=== PATIENT | male | born 1960 | race Caucasian/White ===

== ENCOUNTER 2018-04-20 09:40 | Outpatient (CLI) | payer BC, SELFPAY ==
[2018-04-20 10:09] LABS: Abs Immature Grans 0.03 k/cumm (0.0-0.09); Absolute Basophil Count 0.01 k/cumm (0.0-0.2); Absolute Eosinophil Count 0.01 k/cumm (0.0-0.7); Absolute Monocyte Count 1.73 k/cumm (0.11-0.7); Absolute Neutrophil Count 2.63 k/cumm (1.2-6.7); Basophils % 0.2; Eosinophils % 0.2; HCT 45.2 % (40.0-50.0); HGB 14.9 g/dL (13.5-17.5); Immature Grans % 0.5; Mean Corpuscular Hemoglobin 30.7 pg (27.0-33.0); Monocytes % 27.9; Neutrophils % 42.2; RBC 4.86 m/cumm (4.50-6.00); RBC Distribution Width 13.9 % (11.8-14.1); White Blood Cell Count 6.21 k/cumm (4.4-10.8)
[2018-04-20 10:16] LABS: ALT 79 U/L (12-78); AST 51 U/L (15-37); Albumin 4.3 g/dL (3.4-5.0); Alkaline Phosphatase 56 U/L (46-116); Anion Gap 12.6 mmol/L (3-11); BUN 15 mg/dL (7-18); Bilirubin, Total 0.9 mg/dL (0.2-1.0); CO2 24.4 mmol/L (21.0-32.0); CREATININE 0.95 mg/dL (0.70-1.30); Calcium 8.8 mg/dL (8.5-10.1); Chloride 102 mmol/L (98-107); Glucose 91 mg/dL (70-100); Potassium 4.1 mmol/L (3.5-5.1); Sodium 139 mmol/L (136-145); Total Protein 7.5 g/dL (6.4-8.2)
[2018-04-20 10:34] LABS: Diff Comment Diff Reviewed; Platelet Count 75 x1000/uL (130-400); RBC Morphology Normal
== END 2018-04-20 10:00 ==
PROVIDERS: PCP Internal Medicine; Visit Provider Internal Medicine
DX: D46.20 Refractory anemia with excess of blasts, unspecified (principal)
CPT/HCPCS: 36415; 80053; 85025

== ENCOUNTER 2020-08-07 17:55 | Outpatient (REF) | payer BC, SELFPAY ==
[2020-08-07 19:08] LABS: Abs Immature Grans 14.97 10^3/uL (0.0-0.06); Basophils % 0.4; HCT 37.5 % (40.0-50.0); HGB 11.7 g/dL (13.5-17.5); Immature Grans % 3.5; Lymphocytes % 3.6; MCHC 31.2 % (32.0-36.0); MCV 99.2 fL (80-95); MPV 11.6 fL (8.0-11.0); Neutrophils % 3.2; Nucleated RBC 0 %; RBC 3.78 10^6/uL (4.36-5.78); RDW 17.8 % (11.8-14.1); RDW-SD 62.5 fL
[2020-08-07 19:10] LABS: ALT 64 U/L (16-63); AST 98 U/L (15-37); Albumin 4.3 g/dL (3.4-5.0); Alkaline Phosphatase 189 U/L (46-116); Amylase 42 U/L (25-115); Anion Gap 12.5 mmol/L (3-11); BUN 16 mg/dL (7-18); Bilirubin, Total 2.5 mg/dL (0.2-1.0); CO2 27.5 mmol/L (21.0-32.0); CREATININE 2.7 mg/dL (0.70-1.30); Calcium 9.5 mg/dL (8.5-10.1); Chloride 103 mmol/L (98-107); Estimated GFR 24.14 (mL/min/1.73m2); Glucose 127 mg/dL (74-106); Lipase 181 U/L (73-393); Sodium 143 mmol/L (136-145); Total Protein 7.2 g/dL (6.4-8.2)
[2020-08-07 19:14] LABS: INR 2.1 (0.9-1.1); PTT Activated 30.1 sec (21.0-27.5); Prothrombin Time 20.7 sec (9.3-11.0)
[2020-08-07 19:24] LABS: Bacteria Negative HPF (Negative); Crystals Moderate Amorphous HPF (Negative); Epithelial Cells Negative HPF (Negative); Mucus Negative (Negative); RBC >50 HPF (0-2); WBC Negative HPF (0-5)
[2020-08-07 19:25] LABS: C & S Indicated? C&S Done As Ordered
[2020-08-07 19:28] LABS: Potassium 2.5 mmol/L (3.5-5.1)
[2020-08-07 20:07] LABS: Absolute Lymphocyte Count 15.28 10^3/uL (1.2-3.4); Absolute Neutrophil Count 13.58 10^3/uL (1.2-6.7)
[2020-08-07 21:30] LABS: RBC Morphology Normal
[2020-08-07 21:38] LABS: Platelet Count 44 10^3/uL (130-400)
[2020-08-07 22:02] LABS: Diff Comment Diff Reviewed
[2020-08-09 09:04] LABS: Other Cells % 90
[2020-08-09 14:16] LABS: COVID-19 RT-PCR UVMMC Result Negative (Negative)
== END 2020-08-07 17:56 | disposition home or self-care (01) ==
LOC: NCHCN 17:55
PROVIDERS: PCP Internal Medicine; Visit Provider Physician Assistant
DX: R31.9 Hematuria, unspecified (principal); Z20.822 Contact with and (suspected) exposure to COVID-19
CPT/HCPCS: 80053; 83690; U0003; 81015; 82150; 83655; 85025; 85610; 85730; 87086